=== PATIENT | female | born 1955 | race Hispanic/Latino ===

== ENCOUNTER 2017-07-21 11:44 | Day surgery (SDC) | payer OTHER ==
[2017-07-17 11:36] VITALS: BMI 39.3
[2017-07-21 12:35] LABS: BASO # 0.05 K/mm3 (0.0-2.0); BASO % 0.4 % (0.0-3.0); EOS # 0.3 (0.0-0.7); EOS % 2.4 % (1.5-5.0); GRAN # 8.59 (1.4-6.5); GRAN % 64.1 % (50.0-68.0); LYMPH # 3.7 (1.2-3.4); LYMPH % 27.3 % (22.0-35.0); MEAN CELL VOLUME 84.1 fl (80.0-105.0); MEAN CORPUSCULAR HEMOGLOBIN 27.4 pg (25.0-35.0); MEAN CORPUSCULAR HGB CONC 32.6 g/dl (31.0-37.0); MEAN PLATELET VOLUME 9.1 fl (7.0-11.0); MONO # 0.8 (0.1-0.6); MONO % 5.8 % (1.0-6.0); RED CELL DISTRIBUTION WIDTH 15.6 % (11.5-14.5); WHITE BLOOD COUNT 13.4 10^3/ul (4.5-11.0)
[2017-07-21 12:41] LABS: INR 1.02 (0.93-1.08); PARTIAL THROMBOPLASTIN TIME 30.1 Seconds (23.7-30.8)
[2017-07-21 12:42] LABS: BLOOD UREA NITROGEN 13 mg/dL (7-21); CARBON DIOXIDE 25 mmol/L (21-33); CHLORIDE 105 mmol/L (98-107); GFR AFRICAN-AMERICAN > 60; GLUCOSE,RANDOM 96 mg/dL (70-110); POTASSIUM 4.2 mmol/L (3.6-5.0); SODIUM 141 mmol/L (132-148)
[2017-07-21] MEDS ORDERED: Midazolam 2 MG/2 ML VIAL ONE ×2 (14:36→15:19)
[2017-07-21] MEDS ORDERED: Oxycodone/Acetaminophen 5/325 mg Tab PO PRN (15:38)
[2017-07-21] MEDS ORDERED: Sodium Chloride 0.45% 1,000 ML IV SCH (15:45)
[2017-07-21 17:07] VITALS: BP 156/75; PULSE 82; RESP 22; TEMP 98; O2SAT 96
--- NOTE | 2017-07-21 17:11 | CT ---
PROCEDURE: CT guided left chest biopsy biopsy. HISTORY: Enlarged left AP window lymph nodes. Positive PET. Smoker. Evaluate for malignancy PHYSICIAN(S): Uriel Hamlin MD. TECHNIQUE: The relative risks and indications of the procedure were explained to the patient and consent obtained. The patient was placed supine on the CT scanner and preliminary images through the upper mediastinum obtained. Conscious sedation and monitoring were provided throughout the procedure by a nurse. There is a 1.5 x 3.5 cm lymph node in the AP window. This corresponds to the activity on the PET scan.. A left parasternal approach was selected and the area prepped and draped in the usual sterile fashion. 1% Xylocaine was used to anesthetize the skin and soft tissues. A 17-gauge guiding needle was advanced into the re- 0.5 cm AP window lymph node. Its position was confirmed with CT. Using coaxial technique, multiple core biopsies were obtained. The postprocedure images show no evidence of significant hemorrhage and there is a tiny asymptomatic pneumothorax. Follow-up chest x-ray has been ordered.. IMPRESSION: 1. CT-guided left chest biopsy as described above
--- NOTE | 2017-07-22 13:41 | RAD ---
HISTORY: lt chest bx COMPARISON: No prior. FINDINGS: LUNGS: No active pulmonary disease. PLEURA: No significant pleural effusion identified, no pneumothorax apparent. CARDIOVASCULAR: Normal. OSSEOUS STRUCTURES: No significant abnormalities. VISUALIZED UPPER ABDOMEN: Normal. OTHER FINDINGS: None. IMPRESSION: No evidence of post biopsy pneumothorax
== END 2017-07-21 18:10 | disposition home or self-care (01) ==
LOC: SDS 11:44
PROVIDERS: ATTEND Radiology Vascular & Interventional Radiology
DX: R59.0 Localized enlarged lymph nodes (principal); I73.9 Peripheral vascular disease, unspecified; F17.200 Nicotine dependence, unspecified, uncomplicated; E66.9 Obesity, unspecified; G35 Multiple sclerosis; Z99.3 Dependence on wheelchair; Z88.5 Allergy status to narcotic agent; G82.20 Paraplegia, unspecified; Z68.39 Body mass index [BMI] 39.0-39.9, adult
CPT/HCPCS: 32405; 36415; 71010; 77012; 80048; 85025; 85610; 85730; 88305; 99152; J2250; J2405; J3010; J7030

== ENCOUNTER 2019-02-02 13:09 | Day surgery (SDC) | payer MEDICARE, OTHER ==
[2019-01-31 16:30] VITALS: BMI 30.1
[2019-02-02 14:21] LABS: BASO # 0.03 K/mm3 (0.0-2.0); BASO % 0.2 % (0.0-3.0); EOS # 0.5 (0.0-0.7); EOS % 3.1 % (1.5-5.0); HEMOGLOBIN 12.6 g/dL (12.0-16.0); LYMPH # 4.3 (1.2-3.4); LYMPH % 27.8 % (22.0-35.0); MEAN CELL VOLUME 82.3 fl (80.0-105.0); MEAN CORPUSCULAR HEMOGLOBIN 26.3 pg (25.0-35.0); MEAN CORPUSCULAR HGB CONC 31.9 g/dl (31.0-37.0); MEAN PLATELET VOLUME 8.7 fl (7.0-11.0); MONO # 0.8 (0.1-0.6); MONO % 5.2 % (1.0-6.0); RBC 4.8 10^6/uL (3.5-6.1); RED CELL DISTRIBUTION WIDTH 14.3 % (11.5-14.5); WHITE BLOOD COUNT 15.6 10^3/uL (4.5-11.0)
[2019-02-02 14:27] LABS: BLOOD UREA NITROGEN 11 mg/dL (7-21); CALCIUM 8.6 mg/dL (8.4-10.5); GFR NON-AFRICAN AMERICAN > 60
[2019-02-02 14:30] LABS: INR 1.14; PARTIAL THROMBOPLASTIN TIME 42.5 Seconds (26.9-38.3); PROTHROMBIN TIME 12.6 SECONDS (9.4-12.5)
[2019-02-02] MEDS ORDERED: Midazolam 2 MG/2 ML VIAL ONE (16:16)
[2019-02-02] MEDS ORDERED: Midazolam 2 MG/2 ML VIAL IVP ONE (16:35)
--- NOTE | 2019-02-02 16:52 | US ---
Date of service: 02/02/2019 PROCEDURE: Ultrasound of the Kidneys HISTORY: RENAL US COMPARISON: None available. TECHNIQUE: Sonogram of the kidneys. FINDINGS: RIGHT KIDNEY: Measures: 4.8 x 5.9 x 11.1 cm. Normal in size, contour and echogenicity. No stone, solid mass lesion or hydronephrosis visualized. LEFT KIDNEY: Measures: 6.1 x 5.4 x 11.0 cm. Normal in size, contour and echogenicity. No stone, solid mass lesion or hydronephrosis visualized. OTHER FINDINGS: None. IMPRESSION: Unremarkable renal sonogram.
[2019-02-02] MEDS ORDERED: Sodium Chloride 0.45% 1,000 ML IV SCH (17:00)
--- NOTE | 2019-02-02 17:33 | CT ---
PROCEDURE: CT guided cortex biopsy. HISTORY: Proteinuria. Evaluate for glomerular for opt a 3 PHYSICIAN(S): Uriel Hamlin MD. TECHNIQUE: The relative risks and indications of the procedure were explained to the patient and consent obtained. The patient was placed prone on the CT scanner and preliminary images through the lower kidneys obtained. Conscious sedation and monitoring were provided throughout the procedure by a nurse. The limited images of the left kidney without contrast are unremarkable.. A left posterior approach was selected and the area prepped and draped in the usual sterile fashion. 1% Xylocaine was used to anesthetize the skin and soft tissues. A 17-gauge guiding needle was advanced into the left renal cortex laterally and inferiorly. Its position was confirmed with CT. Using coaxial technique, multiple core biopsies were obtained. The postprocedure images show no evidence of significant hemorrhage. IMPRESSION: 1. CT-guided left renal cortex biopsy as described above.
[2019-02-02 17:49] VITALS: RESP 18; TEMP 97.8; O2SAT 99
[2019-02-02 19:31] VITALS: BP 140/70; PULSE 64
== END 2019-02-02 20:00 | disposition home or self-care (01) ==
LOC: SDS 13:09
PROVIDERS: ATTEND Radiology Vascular & Interventional Radiology
DX: R80.9 Proteinuria, unspecified (principal); J43.9 Emphysema, unspecified
CPT/HCPCS: 36415; 50200; 76770; 77012; 80048; 85025; 85610; 85730; 99152; J2250; J2405; J3010; J7030

== ENCOUNTER 2019-02-22 14:34 | Inpatient (IN) | payer OTHER ==
[2019-02-22 16:33] LABS: BASO # 0.06 K/mm3 (0.0-2.0); BASO % 0.4 % (0.0-3.0); EOS # 0.5 (0.0-0.7); HEMOGLOBIN 13.2 g/dL (12.0-16.0); LYMPH % 26.9 % (22.0-35.0); MEAN CELL VOLUME 81.3 fl (80.0-105.0); MEAN CORPUSCULAR HEMOGLOBIN 26.5 pg (25.0-35.0); MEAN CORPUSCULAR HGB CONC 32.6 g/dl (31.0-37.0); MEAN PLATELET VOLUME 8.8 fl (7.0-11.0); MONO # 0.8 (0.1-0.6); MONO % 5.5 % (1.0-6.0); RBC 4.98 10^6/uL (3.5-6.1); RED CELL DISTRIBUTION WIDTH 13.9 % (11.5-14.5); WHITE BLOOD COUNT 14.8 10^3/uL (4.5-11.0)
[2019-02-22 16:42] LABS: ALB/GLOB RATIO 0.8 (1.1-1.8); ALBUMIN 3.3 g/dL (3.0-4.8); AST/SGOT 16 U/L (14-36); BLOOD UREA NITROGEN 10 mg/dL (7-21); CALCIUM 8.9 mg/dL (8.4-10.5); GFR NON-AFRICAN AMERICAN > 60
[2019-02-22 16:45] LABS: ALT/SGPT < 6 U/L (7-56)
[2019-02-22] MEDS ORDERED: Piperacillin/Tazobact 3.375 gm 100 ML IVPB STA (17:03)
[2019-02-22] MEDS ORDERED: Vancomycin 1gm in NS 250ml 1 GM/250 ML BAG IVPB STA (17:03)
--- NOTE | 2019-02-22 17:05 | ED PDOC ---
Arrival/HPI - General Chief Complaint: Abnormal Skin Integrity Time Seen by Provider: 02/22/19 14:35 Historian: Patient - History of Present Illness Narrative History of Present Illness (Text): 02/22/19 18:51 63-year-old female with a history of MS presents today sent in by her primary care physician for admission for worsening sacral ulcer. Patient is complaining of pain to the sacrum states she has been dealing with a sacral ulcer for a while now. Patient states the wound was improving and now seems to have worsened. She is noticed some discharge coming from the wound. Patient denies fevers or chills. No chest pain or shortness of breath. No abdominal pain. No dizziness or weakness. Patient states she presents today because her primary care physician said that she may need debridement Past Medical History - Provider Review Nursing Documentation Reviewed: Yes - Travel History Have you recently traveled outside [place] w/in the past 3 mons?: No - Cardiac Hx Pacemaker: No - Neurological Hx Paralysis: No - Hematological/Oncological Hx Blood Transfusions: No Hx Blood Transfusion Reaction: No - Musculoskeletal/Rheumatological Hx Musculoskeletal Disorders: Yes (MS) - Psychiatric Hx Emotional Abuse: No Hx Physical Abuse: No Hx Substance Use: No - Anesthesia Hx Anesthesia: Yes Hx Anesthesia Reactions: Yes (VOMITING) Hx Malignant Hyperthermia: No - Suicidal Assessment Feels Threatened In Home Enviroment: No Family/Social History - Physician Review Nursing Documentation Reviewed: Yes Family/Social History: Unknown Family HX Smoking Status: Never Smoked Hx Alcohol Use: No Hx Substance Use: No Allergies/Home Meds Allergies/Adverse Reactions: Allergies codeine Allergy (Intermediate, Verified 07/17/17 11:37) HIVES Home Medications: Home Meds Medication Instructions Recorded Confirmed Baclofen [Lioresal] 10 mg PO BID 07/17/17 02/02/19 Cholecalciferol [Vitamin D 1000 IU] 1 tab PO DAILY 01/31/19 02/02/19 Docusate [Colace] 100 mg PO DAILY 01/31/19 02/02/19 Gabapentin [Neurontin] 100 mg PO TID 01/31/19 02/02/19 Review of Systems - Review of Systems Constitutional: absent: Fatigue, Fevers Respiratory: absent: SOB, Cough Cardiovascular: absent: Chest Pain, Palpitations Gastrointestinal: absent: Abdominal Pain, Nausea, Vomiting Genitourinary Female: Other (+ sanchez catheter). absent: Dysuria, Frequency, Hematuria Musculoskeletal: absent: Back Pain Skin: Skin Lesions (decub ulcer) Neurological: absent: Headache Psychiatric: absent: Anxiety, Depression Physical Exam Vital Signs Reviewed: Yes Vital Signs Temp Pulse Resp BP Pulse Ox 02/22/19 14:35 98.8 F 72 18 131/73 99 Temperature: Afebrile Blood Pressure: Normal Pulse: Regular Respiratory Rate: Normal Appearance: Positive for: Well-Appearing, Non-Toxic, Comfortable Pain Distress: None Mental Status: Positive for: Alert and Oriented X 3 - Systems Exam Head: Present: Atraumatic Respiratory/Chest: Present: Clear to Auscultation Cardiovascular: Present: Regular Rate and Rhythm Abdomen: No: Tenderness Neurological: Present: GCS=15, Speech Normal Skin: Present: Warm, Dry, Other (there is a golf ball sized sacral ulcer with purulent discharge. + surrounding erythema; multiple superficial skin abrasions /skin breakdown; entire sacral area with erythema/irritation. ) Psychiatric: Present: Alert, Oriented x 3 Medical Decision Making ED Course and Treatment: 02/22/19 18:54 63yr old female with decub ulcer/sacral ulcer. cbc; wbcl 14.8 cmp; wnl blood cultures pending. case discussed with dr. webb; accepts admission; consult ID and surgery. pt started on vanco and zosyn IV. pt had refused to have sanchez catheter changed in er. impression; sacral ulcer, leukocytosis admit med/surg - Lab Interpretations Lab Results: Total Bilirubin 0.3 mg/dL (0.2-1.3) 02/22/19 16:26 AST 16 U/L (14-36) 02/22/19 16:26 ALT < 6 U/L (7-56) L 02/22/19 16:26 Alkaline Phosphatase 86 U/L (38-126) 02/22/19 16:26 Total Protein 7.6 g/dL (5.8-8.3) 02/22/19 16:26 Albumin 3.3 g/dL (3.0-4.8) 02/22/19 16:26 Globulin 4.3 gm/dL 02/22/19 16:26 Albumin/Globulin Ratio 0.8 (1.1-1.8) L 02/22/19 16:26 - Medication Orders Current Medication Orders: Vancomycin HCl (Vancomycin 1gm) 1 gm in 250 mls @ 167 mls/hr IVPB STAT STA; Protocol Stop: 02/22/19 18:32 Piperacillin Sod/Tazobactam Sod (Zosyn 3.375 In Ns 100ml) 100 mls @ 200 mls/hr IVPB STAT STA; Protocol Stop: 02/22/19 17:32 Discontinued Medications Baclofen (Lioresal) 10 mg PO STAT STA Stop: 02/22/19 15:51 Last Admin: 02/22/19 16:11 Dose: 10 mg Gabapentin (Neurontin) 100 mg PO STAT STA; Protocol Stop: 02/22/19 15:51 Last Admin: 02/22/19 16:11 Dose: 100 mg Disposition/Present on Arrival - Present on Arrival Any Indicators Present on Arrival: No History of DVT/PE: No History of Uncontrolled Diabetes: No Urinary Catheter: No History of Decub. Ulcer: No History Surgical Site Infection Following: None - Disposition Have Diagnosis and Disposition been Completed?: Yes Diagnosis: Decubitus skin ulcer Disposition: HOSPITALIZED Disposition Time: 17:05 Patient Plan: Admission Patient Problems: Current Active Problems Problem Status Onset Decubitus skin ulcer Acute Condition: FAIR Referrals: Yosef Marte MD [Primary Care Provider] - Follow up with primary Forms: [employer] (Macedonian)
[2019-02-22 19:02] LABS: INR 1.06; PROTHROMBIN TIME 11.8 SECONDS (9.4-12.5)
[2019-02-22] MEDS ORDERED: Vancomycin 1gm in NS 250ml 1 GM/250 ML BAG IVPB SCH (19:45)
--- NOTE | 2019-02-22 21:54 | CP.PCM.CON ---
History of Present Illness - History of Present Illness History of Present Illness: General Surgery Dr. Lynch 63 y/o F w/ PMHx MS, PVD, asthma presents to the ED at the direction of her PMD for sacral wound evaluation. Pt has had sacral wound for ~1yr. Pt had debridement done @[facility] last year which mostly healed, though pt reports chronic small stage 2 ulcer remained. Pt has home health aid that manages wound and A DLs. Per pt, aid noted enlargement of wound w/ worsening drainage. Pt admits to slight worsening of pain at the site. Pt's PMD made home visit yesterday and instructed pt come to the ED for possible debridement. Pt admits to chronic N/V associated w/ physical therapy 2/2 MS. Pt denies F/C, CP, SOB, abd pain, D/C, dysuria. Pt has indwelling sanchez catheter 2/2 urinary incontinence and permanent end colostomy 2/2 fecal incontinence. PMHx: see above, obesity, sacral decubitus ulcer, lung nodule Meds: reviewed in chart ALL: codeine --> rash PSHx: permanent end-colostomy ([facility] 2018), sacral wound debridemenr ([facility] 2018), cervical discectomy SHx: former tobacco use; denies EtOH, drug use FHx: noncontributory Review of Systems - Review of Systems All systems: reviewed and no additional remarkable complaints except (see HPI) Past Patient History - Past Social History Smoking Status: Never Smoked - CARDIAC Hx Pacemaker: No - NEUROLOGICAL Hx Paralysis: No - HEMATOLOGICAL/ONCOLOGICAL Hx Blood Transfusions: No Hx Blood Transfusion Reaction: No - MUSCULOSKELETAL/RHEUMATOLOGICAL Hx Musculoskeletal Disorders: Yes (MS) - PSYCHIATRIC Hx Emotional Abuse: No Hx Physical Abuse: No Hx Substance Use: No - SURGICAL HISTORY Hx Surgeries: Yes - ANESTHESIA Hx Anesthesia: Yes Hx Anesthesia Reactions: Yes (VOMITING) Hx Malignant Hyperthermia: No Meds Allergies/Adverse Reactions: Allergies Allergy/AdvReac Type Severity Reaction Status Date / Time codeine Allergy Intermediate HIVES Verified 07/17/17 11:37 - Medications Medications: Current Medications Baclofen (Lioresal) 10 mg PO BID [facility] Docusate Sodium (Colace) 100 mg PO DAILY [facility] Gabapentin (Neurontin) 100 mg PO TID [facility]; Protocol Meropenem (Merrem Iv 1 Gm Premix) 1 gm in 50 mls @ 100 mls/hr IVPB Q8 [facility]; Protocol Stop: 03/02/19 22:01 Vancomycin HCl (Vancomycin 1gm) 1 gm in 250 mls @ 167 mls/hr IVPB Q12H [facility]; Protocol Stop: 03/03/19 19:46 Physical Exam - Constitutional Appears: Non-toxic, No Acute Distress - Head Exam Head Exam: NORMAL INSPECTION - Eye Exam Eye Exam: Normal appearance - ENT Exam ENT Exam: Mucous Membranes Moist - Respiratory Exam Respiratory Exam: NORMAL BREATHING PATTERN. absent: Accessory Muscle Use, Respiratory Distress - Cardiovascular Exam Cardiovascular Exam: absent: Bradycardia, Tachycardia - GI/Abdominal Exam GI & Abdominal Exam: Soft. absent: Distended, Tenderness Additional comments: ostomy in place - Exam Additional comments: sanchez in place - Back Exam Additional comments: [id number] sacral decubitus ulcer stage 2 w/ surrounding stage1 vs DTI - Neurological Exam Neurological exam: Alert, Oriented x3 - Psychiatric Exam Psychiatric exam: Normal Affect, Normal Mood - Skin Skin Exam: Dry, Warm Results - Vital Signs Recent Vital Signs: Last Vital Signs Temp 97.4 F L 02/22/19 19:30 Pulse 76 02/22/19 19:30 Resp 18 02/22/19 19:30 BP 135/74 02/22/19 19:30 Pulse Ox 98 02/22/19 19:30 - Labs Result Diagrams: 02/22/19 16:26 02/22/19 16:26 Labs: Laboratory Results - last 24 hr 02/22/19 02/22/19 02/22/19 16:26 16:26 18:38 WBC 14.8 H RBC 4.98 Hgb 13.2 Hct 40.5 MCV 81.3 MCH 26.5 MCHC 32.6 RDW 13.9 Plt Count 418 MPV 8.8 Neut % (Auto) 64.2 Lymph % (Auto) 26.9 Coles % (Auto) 5.5 Eos % (Auto) 3.0 Baso % (Auto) 0.4 Lymph # (Auto) 4.0 H Coles # (Auto) 0.8 H Eos # (Auto) 0.5 Baso # (Auto) 0.06 Absolute Neuts (auto) 9.48 H PT 11.8 INR 1.06 APTT 44.0 H Sodium 141 Potassium 4.3 Chloride 107 Carbon Dioxide 29 Anion Gap 10 BUN 10 Creatinine 0.6 L Est GFR ( Amer) > 60 Est GFR (Non-Af Amer) > 60 Random Glucose 87 Calcium 8.9 Total Bilirubin 0.3 AST 16 ALT < 6 L Alkaline Phosphatase 86 Total Protein 7.6 Albumin 3.3 Globulin 4.3 Albumin/Globulin Ratio 0.8 L Assessment & Plan - Assessment and Plan (Free Text) Assessment: 63 y/o F w/ sacral decubitus ulcer 2/2 MS Plan: - turn Q2 - air mattress - off loading - keep area dry and clean - optifoam - will need to further assess wound in AM when more assistance available for evaluation of wound bed Will discuss w/ Dr. Syed Liz PGY3
[2019-02-22] MEDS ORDERED: DiphenhydrAMINE 50 mg/ml Inj IVP STA (22:35)
[2019-02-22] MEDS: Meropenem IV 1 gm in NS 1 GM/50 ML BAG IVPB SCH (22:57)
[2019-02-22 23:12] VITALS: BMI 27.4
[2019-02-23] MEDS: Meropenem IV 1 gm in NS 1 GM/50 ML BAG IVPB SCH ×3 (05:20→22:06)
--- NOTE | 2019-02-23 11:17 | CP.PCM.PN ---
Subjective - Date & Time of Evaluation Date of Evaluation: 02/23/19 Time of Evaluation: 11:08 - Subjective Subjective: SURGERY NOTE FOR DR. MARIE 63F seen and examined at bedside. Patient has back pain where the ulcers are, denies fevers. Patient is bedbound and does not walk due to MS. Objective - Vital Signs/Intake and Output Vital Signs (last 24 hours): Temp Pulse Resp BP Pulse Ox 98.7 F 66 18 155/67 H 95 02/23/19 06:00 02/23/19 06:00 02/23/19 06:00 02/23/19 06:00 02/23/19 06:00 Intake and Output: 02/23/19 02/23/19 06:59 18:59 Output Total 350 Balance -350 - Medications Medications: Current Medications Baclofen (Lioresal) 10 mg PO BID [facility]ION[facility] Docusate Sodium (Colace) 100 mg PO DAILY DIONE Gabapentin (Neurontin) 100 mg PO TID [facility]; Protocol Meropenem (Merrem Iv 1 Gm Premix) 1 gm in 50 mls @ 100 mls/hr IVPB Q8 [facility]; Protocol Stop: 03/02/19 22:01 Last Admin: 02/23/19 05:20 Dose: 100 mls/hr Linezolid (Zyvox) 600 mg PO BID [facility]; Protocol Stop: 03/04/19 10:01 - Labs Labs: 02/22/19 16:26 02/22/19 16:26 PT 11.8 SECONDS (9.4-12.5) 02/22/19 18:38 INR 1.06 02/22/19 18:38 APTT 44.0 Seconds (26.9-38.3) H 02/22/19 18:38 - Constitutional Appears: Non-toxic, No Acute Distress - Respiratory Exam Respiratory Exam: Clear to Ausculation Bilateral, NORMAL BREATHING PATTERN - Cardiovascular Exam Cardiovascular Exam: REGULAR RHYTHM, +S1, +S2 - GI/Abdominal Exam GI & Abdominal Exam: Soft. absent: Distended, Firm, Guarding, Rigid, Tenderness, Rebound - Back Exam Additional comments: stage 2 3*3cm ulcer with multiple skin tears, no necrotic region, no drainage - Neurological Exam Neurological Exam: Alert, Awake - Skin Skin Exam: Dry, Intact, Normal Color, Warm Assessment and Plan - Assessment and Plan (Free Text) Assessment: 63 y/o F w/ sacral decubitus ulcer 2/2 MS Plan: - Turn Q2 - Air mattress - Keep area dry and clean - Optifoam Dressing Further recs discuss with Dr. Syed Kirk, PGY3
--- NOTE | 2019-02-23 15:30 | CON ---
DATE: 02/23/2019 LOCATION: The patient seen in room 574, bed 1. CHIEF COMPLAINT: Breakdown of the skin in the back times several days. HISTORY OF PRESENT ILLNESS: This is a 63-year-old female who carries a diagnosis of multiple sclerosis for many years who has had the sacral ulcer that is being treated, and however last 3 days, it got progressively worse and started having discharge. She denies any fevers, any chills. No nausea, no vomiting or chest pain. She has significant pain in her back. REVIEW OF SYSTEMS: Reveals a 12-point review of systems is performed. PAST MEDICAL HISTORY: Significant for multiple sclerosis and a decubitus ulcer. PAST SURGICAL HISTORY: Significant for decubitus ulcer, sacral ulcer debridement and cervical disk disease x2 after a fall. The patient also has history of asthma and peripheral vascular disease. ALLERGIES: THE PATIENT IS ALLERGIC TO CODEINE. SOCIAL HISTORY: No alcohol use. No drug use. PHYSICAL EXAMINATION: GENERAL: The patient is in bed, answering questions appropriately. VITAL SIGNS: Temperature of 98, blood pressure is 130/70, respiratory rate of 18. HEENT: Unremarkable. NECK: Supple. LUNGS: Decreased breath sounds. HEART: Normal S1 and S2. ABDOMEN: Soft, nontender. EXTREMITIES: Examination of decubitus ulcer reveals a significant decubitus ulcer is present. There is no erythema and there is discharge. LABORATORY DATA: Reveals a white count of 14,800 and sed rate is 118. BUN of 10, creatinine of 0.6. Microbiology is pending. Emergency room chart is reviewed and Dr. Lynch's consultation is reviewed. ASSESSMENT AND PLAN: This is a 63-year-old female with multiple sclerosis, asthma, peripheral vascular disease, sacral ulcer, presenting with infected sacral ulcer with leukocytosis. We will treat the patient with meropenem. We will add Zyvox with questionable the IV site. Vancomycin was given last night and too fast and the IV site was infiltrated, not a true pathogen. We will treat with Zyvox and meropenem for now pending culture results. Donis Ramirez MD
--- NOTE | 2019-02-23 16:09 | US ---
Date of service: 02/23/2019 HISTORY: transaminitis COMPARISON: None. TECHNIQUE: Sonographic evaluation of the right upper quadrant of the abdomen. FINDINGS: LIVER: Measures 13.5 cm in length. Diffusely increased echogenicity of the liver parenchyma. No mass. No intrahepatic bile duct dilatation. GALLBLADDER: Distended but otherwise unremarkable gallbladder. No sonographic Garcia sign recall phthisis. COMMON BILE DUCT: Measures 5.7 mm. No stones. No dilatation. PANCREAS: Unremarkable as visualized. No mass. No ductal dilatation. RIGHT KIDNEY: Measures 10.7 cm in length. Normal echogenicity. No calculus, mass, or hydronephrosis. AORTA: Obscured by overlying bowel gas. IVC: Obscured by overlying bowel gas. OTHER FINDINGS: None . IMPRESSION: Diffuse hepatic steatosis or other hepatic infiltrative process present. Obscuring of the aorta and vena cava by overlying gastrointestinal gas with remainder unremarkable.
--- NOTE | 2019-02-23 20:59 | HP ---
DATE OF EXAM: 02/23/2019 CHIEF COMPLAINT AND HISTORY OF PRESENT ILLNESS: This is a 63-year-old female, who is coming into the hospital because of a sacral pressure ulcer that is nonhealing. She failed outpatient treatment. 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 She is homebound. She is having no complaints of any chest pain. No shortness of breath. The patient does have difficulty in walking, but has not changed over the past few months. She was admitted for evaluation of her wound. The patient had been in [facility] and had a large wound that has been present about a year ago. She had local wound care and debridement and that wound has improved, but not completely healed. She has a homemaker and also physical therapy that comes to the house. She has a chronic Velez catheter because of a urinary incontinence. She otherwise has no other complaints. She has no fevers or chills. No headaches or dizziness. No nausea. No vomiting. All other review of symptoms are within normal limits except what is mentioned. ALLERGIES: TO CODEINE. MEDICATIONS: Have been reviewed in the chart. PAST MEDICAL HISTORY: Lung nodule, sacral pressure ulcer, and multiple sclerosis. PAST SURGICAL HISTORY: End colostomy in 2019, sacral pressure ulcer, and cervical discectomy. SOCIAL HISTORY: The patient does not smoke or use drugs; denies alcohol. She smoked for 35 years, one pack per day, but is not currently smoking. PHYSICAL EXAMINATION: VITAL SIGNS: Temperature is 98.7, pulse of 66, blood pressure 155/67, respirations 18, and O2 saturation 95%. Height is 5 feet 6 inches, weight is 170 pounds, and BMI is 27. GENERAL: The patient is lying in bed, comfortable, and in no acute distress. HEENT: Atraumatic and normocephalic. Anicteric sclerae. Moist mucosa. Avilla conjunctivae. No oral lesions. NECK: No JVD, anterior and posterior adenopathy, thyromegaly, or bruits. CARDIOVASCULAR: S1 and S2 regular. No murmurs, rubs or gallops. LUNGS: Clear to auscultation bilaterally. No wheezes, rales, or rhonchi. ABDOMEN: Bowel sounds are positive. Soft, nontender and nondistended. No hepatosplenomegaly. No rebound and no guarding. EXTREMITIES: No cyanosis, clubbing, or edema. NEUROLOGIC: No facial asymmetry. Tongue is midline. No uvula deviation. Power is 5/5 in upper extremities and lower extremities. Sensation intact in upper extremities and lower extremities. PSYCHIATRIC: She is awake, alert and oriented x3. No anxiety or depression. She has normal affect. GENITOURINARY: No CVA tenderness. VASCULAR: 2+ pulses in the carotid pulses and pedal pulses. SKIN: No erythema or nodules SPINE: Shows normal curvature. BACK: Pressure ulcer is 2 x 2 cm, stage II. LABORATORY DATA: White count of 14.8, hemoglobin 13.2, and creatinine is 0.6. She had a renal ultrasound done on 02/02/2019 that showed that it was an unremarkable renal ultrasound. She had the right kidney that is 4.8 x 5.9 x 11.1 cm and left kidney that is 6.1 x 5.4 x 11 cm. ASSESSMENT: 1. Pressure ulcer, stage II, sacral area. 2. Membranous glomerulonephritis. 3. Multiple sclerosis. 4. Constipation. PLAN: The patient is admitted to the hospital. She had abnormal LFTs as an outpatient by Dr. Marte. I did speak to him. He requested a liver ultrasound to be done that has been ordered. The patient is on IV antibiotics with meropenem. She is on baclofen for spasticity. She is also receiving linezolid. The patient is going to be seen by Dr. Ramirez from Infectious Disease and Dr. Lynch. I did review the note of the Surgery team. We will continue to follow closely. Cleveland Christopher MD
[2019-02-24] MEDS: Meropenem IV 1 gm in NS 1 GM/50 ML BAG IVPB SCH ×3 (05:51→21:16)
--- NOTE | 2019-02-24 17:13 | PQF ---
PROVIDER RESPONSE TEXT: Stage II sacral pressure ulcer REVIEWER QUERY TEXT: Pressure Ulcer Type Pressure ulcer is documented in the Medical Record. Please specify the location, present on admission status and/or stage: Location and laterality of pressure ulcer(s): POA status of each pressure ulcer: -- Not present on admission -- Present on admission -- Other -- Clinically unable to determine -- Unknown Stage of each pressure ulcer (National Pressure Ulcer Advisory Panel definitions): -- Stage I: Intact skin with non-blanchable redness of a localized area -- Stage II: Partial thickness skin loss involving dermis with a shallow open ulcer or an open serum -filled blister -- Stage III: Full thickness skin loss involving damage or necrosis of subcutaneous tissue -- Stage IV: Full thickness skin loss with exposed bone, tendon or muscle -- Unstageable: Full thickness tissue loss in which the base of the ulcer is covered by slough and/o r eschar in the wound bed The patient's Clinical Indicators include: Query created by: Namita Kim on 02/24/2019 2:59 PM Electronically signed by: Cleveland Christopher MD 02/24/2019 5:10 PM
--- NOTE | 2019-02-24 22:31 | PN ---
DATE: 02/24/2019 SUBJECTIVE: The patient is in bed in no acute distress. PHYSICAL EXAMINATION: VITAL SIGNS: Temperature 98, blood pressure is 118/70, respiratory rate of 20. HEENT: Unremarkable. NECK: Supple. LUNGS: Have decreased breath sounds. HEART: Normal S1, S2. ABDOMEN: Soft. LABORATORY EXAMINATION: Reveals a white count of 14,800, hemoglobin of 13. Chemistries reveals a BUN of 10, creatinine 0.6. The patient's sed rate is 118. C-reactive protein is 32. Urinalysis is noted. Microbiology reveals the blood cultures are negative. The patient had an ultrasound of the abdomen, which shows diffuse hepatic steatosis. ASSESSMENT AND PLAN: This is a 63-year-old female who was admitted with a history of multiple sclerosis, asthma, peripheral vascular disease, sacral ulcers, presented with leukocytosis and infected sacral ulcer, must rule out underlying osteomyelitis. Currently on Zyvox and meropenem. We will check on the panculture results, values of sed rate and elevated C-reactive protein in the patient with multiple sclerosis of values since inflammatory markers not specific enough. Donis Ramirez MD
--- NOTE | 2019-02-25 03:40 | PN ---
DATE: 02/24/2019 SUBJECTIVE: The patient has no complaints of any chest pain. No shortness of breath. No headaches. PHYSICAL EXAMINATION: VITAL SIGNS: Temperature is 98, pulse is 68, blood pressure is 118/74, respirations 20. GENERAL: The patient is lying in bed, flat, comfortable. HEENT: No oral lesion. Anicteric sclerae. Moist mucosa. NECK: No JVD, adenopathy, or thyromegaly. CARDIOVASCULAR: S1 and S2, regular. No murmurs, rubs, or gallops. LUNGS: Clear to auscultation bilaterally. No wheeze, rales, or rhonchi. ABDOMEN: Bowel sounds are positive. Soft, nontender, nondistended. EXTREMITIES: No cyanosis, clubbing, or edema. LABORATORY DATA: White count of 14.8, hemoglobin is 13.2, creatinine is 0.6. ASSESSMENT: 1. Pressure ulcer, stage II, sacral area. 2. Membranous glomerulonephritis. 3. Multiple sclerosis. 4. Constipation. PLAN: The patient has an . She is getting 2 hours. She is getting local wound care. She has a 2 x 3 cm ulcer. The patient had an ultrasound done that showed increased echogenicity of the liver parenchyma, there is no mass, measures 13.5 cm. She is on baclofen. She is going to continue with lisinopril for her hypertension. She is on a regular diet. Cleveland Christopher MD
[2019-02-25] MEDS: Meropenem IV 1 gm in NS 1 GM/50 ML BAG IVPB SCH ×3 (05:14→21:06)
--- NOTE | 2019-02-25 10:42 | PN ---
DATE: 02/25/2019 SUBJECTIVE: The patient has no complaints of any chest pain. No shortness of breath. No headaches. PHYSICAL EXAMINATION: VITAL SIGNS: Temperature 98.1, pulse 66, blood pressure 146/73, respirations 20. GENERAL: The patient is lying in bed, flat, comfortable. HEENT: No oral lesion. Anicteric sclerae. Moist mucosa. NECK: No JVD, adenopathy, or thyromegaly. CARDIOVASCULAR: S1 and S2, regular. No murmurs, rubs, or gallops. LUNGS: Clear to auscultation bilaterally. No wheeze, rales, or rhonchi. ABDOMEN: Bowel sounds are positive, soft, nontender and nondistended. EXTREMITIES: No cyanosis, clubbing or edema. LABORATORY DATA: White count of 14.8, hemoglobin is 13.2, creatinine is 0.6. ASSESSMENT: 1. Pressure ulcer, stage II, sacral area. 2. Membranous glomerulonephritis. 3. Multiple sclerosis. 4. Constipation. PLAN: The patient is getting local wound care. She is on meropenem for antibiotics. She is on Neurontin for neuropathy. The patient is on Zyvox for antibiotics. I did speak to Dr. Lynch and Dr. Ramirez from Surgery and Infectious Disease respectively. The patient is on a regular diet. Cleveland Christopher MD
[2019-02-25] MEDS ORDERED: Collagenase 250 Units/gm Ointment(30 gm) TOP SCH ×2 (10:45→11:31)
[2019-02-25] MEDS: Nystatin 100,000 Units/gm Topical Pow(15 gm) TOP SCH (17:13)
--- NOTE | 2019-02-25 20:52 | PN ---
DATE: 02/25/2019 SUBJECTIVE: The patient is in bed in no acute distress, nontoxic, was seen early this morning. PHYSICAL EXAMINATION VITAL SIGNS: On exam temperature is 98, blood pressure is 140/60 and respiratory rate of 20. HEENT: Unremarkable. NECK: Supple. LUNGS: Have decreased breath sounds. HEART: Normal S1 and S2. ABDOMEN: Soft. LABORATORY EXAMINATION: Reveals the blood cultures are negative. Urine cultures are negative. Review of orders reveals the patient to be on meropenem and Zyvox. Dr. Christopher's note is reviewed. ASSESSMENT AND PLAN: This is a 63-year-old female who was admitted with a history of multiple sclerosis, asthma, peripheral vascular disease, sacral ulcer, presented with leukocytosis, infected sacral ulcer and cultures are pending. Case discussed with Dr. Christopher. We will follow with you. Donis Ramirez MD
--- NOTE | 2019-02-25 22:40 | CON ---
DATE: 02/25/2019 HISTORY OF PRESENT ILLNESS: This is a 63-year-old female with a past medical history of sacral pressure ulcer, multiple sclerosis, and a lung nodule and came to hospital because of nonhealing sacral ulcer, failed outpatient treatment, has a history of membranous glomerulonephritis. She was seen in [place] for her MS, but has not seen anybody for the last two years and stopped ambulating a year ago. She has a full-time care who is on care with her. ALLERGIES: ALLERGIC TO CODEINE. SOCIAL HISTORY: Does not smoke, does not drink. She smoked for 35 years, one pack per day, currently not smoking. PHYSICAL EXAMINATION VITAL SIGNS: Blood pressure 155/67. HEENT: Normocephalic, atraumatic. NECK: Supple. NEUROLOGIC: Awake and orientated to self and place. Cranial nerves II through XII were tested. Pupils reactive. EOM intact. Visual henderson full. No facial asymmetry. Tongue midline. Motor examination; moves both upper extremities equally 5/5. Limited movement of the both lower extremities. Deep tendon reflex is 1+. Both plantars downgoing. Sensory appears intact. Cerebellar gait was deferred. IMPRESSION AND PLAN: This is a 63-year-old white female with past medical history of multiple sclerosis, came here with a pressure ulcer sacral area, nonhealing and membranous glomerulonephritis, multiple sclerosis, and constipation. We ordered the MRI of the head with and without contrast and MRI of the cervical spine and further management after results of above test. She has not been taking any modulating agents, so we will followup. Zack Cline MD
[2019-02-26] MEDS: Meropenem IV 1 gm in NS 1 GM/50 ML BAG IVPB SCH ×3 (05:19→21:44)
--- NOTE | 2019-02-26 09:51 | PN ---
DATE: 02/26/2019 SUBJECTIVE: The patient is in bed in no acute distress, nontoxic. PHYSICAL EXAMINATION: VITAL SIGNS: Temperature is 98, blood pressure is 150/60, respiratory rate 16. HEENT: Unremarkable. NECK: Supple. LUNGS: Have decreased breath sounds. HEART: Normal S1, S2. ABDOMEN: Soft, nontender. LABORATORY EXAMINATION: Review of white count of 14,000. Sed rate of 118 and C-reactive protein is 32. Chemistries are noted. Urinalysis is noted. Microbiology; the blood cultures and urine cultures are negative. Wound culture is pending. Review of orders reveals the patient to be on Zyvox and meropenem. ASSESSMENT AND PLAN: This is a 63-year-old female admitted with multiple sclerosis, asthma, peripheral vascular is with sacral ulcers and leukocytosis and infected sacral ulcers on vancomycin and meropenem, pending culture results and must rule out underlying osteomyelitis of the sacral bone, should have CAT scan or imaging or MRI. We will discuss with Dr. Christopher. Rose Marie Barajas MD Donis Ramirez MD
[2019-02-26] MEDS: Nystatin 100,000 Units/gm Topical Pow(15 gm) TOP SCH ×2 (09:55→17:42)
[2019-02-26] MEDS ORDERED: Gadodiamide 287 MG/ML VIAL (15ML) IV ONE (15:16)
--- NOTE | 2019-02-26 16:38 | MRI ---
Date of service: 02/26/2019 PROCEDURE: MRI BRAIN WITH AND WITHOUT CONTRAST HISTORY: MS COMPARISON: None. TECHNIQUE: Multiplanar, multisequence MR images of the brain were obtained with and without intravenous contrast enhancement. 15 mL Omniscan was injected intravenously. FINDINGS: HEMORRHAGE: None DWI: No evidence of an acute or early subacute infarction. BRAIN PARENCHYMA: There are multifocal T2/FLAIR hyperintense lesions in the subcortical deep and periventricular white matter and confluent T2/FLAIR hyperintensities in the periventricular white matter. There are chronic lacunar infarctions in the left basal ganglia. There is no mass, mass effect or abnormal extra-axial fluid collection. There is also T2/FLAIR hyperintensity at the callososeptal interface. ENHANCEMENT: No abnormal intracranial enhancement. VENTRICLES: There is mild age-related global parenchymal volume loss and proportionate enlargement of the ventricles and cortical sulci. CRANIUM: There is normal bone marrow signal pattern. ORBITS: Grossly unremarkable. PARANASAL SINUSES/MASTOIDS: Predominantly clear. VASCULAR SYSTEM: There are normal signal voids in the larger intracranial arteries. OTHER FINDINGS: None . IMPRESSION: 1. No acute intracranial abnormality. 2. Multifocal subcortical deep and periventricular white matter lesions are nonspecific but most compatible with demyelinating plaques of multiple sclerosis with the stated clinical history of multiple sclerosis. No evidence for active demyelination.
--- NOTE | 2019-02-26 17:08 | MRI ---
Date of service: 02/26/2019 PROCEDURE: MR CERVICAL SPINE WITH AND WITHOUT CONTRAST HISTORY: MS, S/P FALL AT HOME COMPARISON: There radiology MRI please yeah 1 [id number] to the MRI from the the the of the we 2 arm study dated TECHNIQUE: Multiecho multiplanar sequences were performed through the cervical spine with and without the use of intravenous contrast. 15 mL Omniscan was injected intravenously. Examination is of suboptimal diagnostic quality especially for evaluation of cervical cord due to motion degraded images FINDINGS: There is normal alignment of the cervical vertebral bodies. There straightening of the cervical spine with loss of normal cervical lordosis. Status post fusion of C3-4 and C5-6 vertebral bodies. There is heterogeneous predominantly fatty marrow signal on T1 and T2 weighted images. Evaluation of the cervical is limited due to motion degraded images allowing for this, the cord is atrophic without evidence for intrinsic signal abnormality. No evidence of abnormal intramedullary or leptomeningeal enhancement in the cervical and visualized upper thoracic cord. C2-3: No disc herniation, spinal canal stenosis or neural foraminal narrowing. C3-4: Status post fusion. C4-5: Broad-based disc osteophyte complex indents the ventral thecal sac with moderate spinal canal stenosis. Also noted is superimposed left posterolateral and foraminal disc protrusion which likely impinges on the exiting C5 nerve root. C5-C6: Status post fusion. C6-C7: No disc herniation, spinal canal stenosis or neuroforaminal narrowing. C7-T1: Broad-based disc osteophyte complex indents the ventral thecal sac with mild spinal canal stenosis. Moderate bilateral facet arthropathy contribute to moderate right and moderate to severe left neural foraminal narrowing. OTHER FINDINGS: There is an enlarged multinodular thyroid gland. IMPRESSION: 1. This examination is of suboptimal diagnostic quality due to motion degraded images. Allowing for this, the cervical cord is atrophic without evidence of abnormal intrinsic signal, intramedullary or leptomeningeal enhancement. No evidence for active demyelination. 2. Status post presumable degenerative fusion of the C3-4 and C5-6 vertebral bodies, mild multilevel degenerative disc disease, worse at C4-5 with a broad-based disc osteophyte complex with superimposed left posterolateral and foraminal disc protrusion which impinges the exiting left C5 nerve root, also noted is moderate spinal canal stenosis. 3. Enlarged multinodular thyroid gland. A dedicated thyroid ultrasound is recommended for complete evaluation of the thyroid gland.
--- NOTE | 2019-02-26 17:45 | PN ---
DATE: 02/26/2019 SUBJECTIVE: The patient is a 63-year-old female with past medical history of multiple sclerosis and came with sacral pressure ulcers and the patient and MRI of the head and the MRI of the cervical spine was ordered. Still pending and continue present workup in progress. We will follow up. ASSESSMENT AND PLAN: This is a 63-year-old with past medical history of multiple sclerosis, came with sacral nonhealing ulcers and workup in progress. We will follow up. Zack Cline MD
--- NOTE | 2019-02-27 01:52 | DS ---
HISTORY OF PRESENT ILLNESS: This is a 63-year-old female who had come into the hospital because of sacral pressure ulcer. The patient was started on local wound care and started on IV antibiotics. The patient states pressure ulcer has been treated locally. She is going to be discharged home today after she has an MRI to be done by Neurology. She has no complaints of any headaches or dizziness. No nausea, no vomiting. PHYSICAL EXAMINATION: VITAL SIGNS: Temperature is 98.1, pulse is 62, blood pressure is 150/72, respirations 18, O2 saturation is 96%. GENERAL: The patient is lying in bed, flat, comfortable. HEENT: No oral lesion. Anicteric sclerae. Moist mucosa. NECK: No JVD, adenopathy, or thyromegaly. CARDIOVASCULAR: S1 and S2, regular. No murmurs, rubs, or gallops. LUNGS: Clear to auscultation bilaterally. No wheeze, rales, or rhonchi. ABDOMEN: Bowel sounds are positive, soft, nontender and nondistended. BACK: In sacral area, there is a stage II pressure wound. EXTREMITIES: No cyanosis, clubbing or edema. Sacral area; there is a stage II pressure wound. LABORATORY DATA: White count of 14.8, hemoglobin 13.2. Chemistry shows sodium 141, potassium is 4.3, C-reactive protein is 32. ASSESSMENT: 1. Pressure ulcer, stage II, sacral area. 2. Membranous glomerulonephritis. 3. Multiple sclerosis. 4. Constipation. PLAN: The patient is on baclofen for her MS. She was seen by Dr. Cline, appreciated his input. The patient is on meropenem for IV antibiotics, I will change this over to Augmentin and doxycycline oral/p.o. to discharged home. [facility] I will written prescription for dressings 4 x 4's and saline. The patient has an MRI of the brain and spinal cord, that is pending. DIET: She is on regular diet. FOLLOWUP: Follow up with Dr. Marte in 1 to 2 weeks. CONDITION: Stable. ACTIVITIES: Increase as tolerated. Cleveland Christopher MD [facility] # [id number]
[2019-02-27] MEDS: Meropenem IV 1 gm in NS 1 GM/50 ML BAG IVPB SCH ×3 (05:03→22:44)
--- NOTE | 2019-02-27 13:43 | PN ---
DATE: 02/27/2019 SUBJECTIVE: The patient is in bed in no acute distress, nontoxic. PHYSICAL EXAMINATION: VITAL SIGNS: Temperature is 97, blood pressure is 111/70, respiratory rate of 18, heart rate of 64. HEENT: Unremarkable. NECK: Supple. LUNGS: Have decreased breath sounds. HEART: Normal S1, S2. ABDOMEN: Soft. LABORATORY EXAMINATION: Reveals a white count of 14,000, hemoglobin of 13. C-reactive protein is 32. Sed rate is 118. Chemistries are noted. Urinalysis is noted and microbiology reveals the sacral cultures pending. The blood cultures are no growth. Urine cultures negative and patient has had an MRI of the head. Which shows no acute abnormalities and the patient also had an MRI of the cervical spine which is noted and MRI of the pelvis is pending results. ASSESSMENT AND PLAN: This is a 63-year-old female with a history of multiple sclerosis, asthma, peripheral vascular disease, sacral ulcer and leukocytosis, infected sacral ulcers on vancomycin, meropenem. MRI pending to rule out osteomyelitis and culture of the sacrum also pending. We will see MRI and the cultures are available. We will decide on the antibiotics and duration. Currently on meropenem which requires renewal which she will do so and also linezolid which also requires renewal and we will do so. Continue linezolid and meropenem pending culture MRI results. Case discussed with Dr. Christopher. Donis Ramirez MD
--- NOTE | 2019-02-27 16:21 | PN ---
DATE: 02/27/2019 SUBJECTIVE: The patient has no complaints of any chest pain or shortness of breath. No headaches or dizziness. PHYSICAL EXAMINATION: VITAL SIGNS: Temperature is 97.9, pulse is 64, blood pressure is 111/70, and respirations are 18. GENERAL: The patient is lying in bed, flat, comfortable. HEENT: No oral lesion. Anicteric sclerae. Moist mucosa. NECK: No JVD, adenopathy, or thyromegaly. CARDIOVASCULAR: S1 and S2, regular. No murmurs, rubs, or gallops. LUNGS: Clear to auscultation bilaterally. No wheeze, rales, or rhonchi. ABDOMEN: Bowel sounds are positive, soft, nontender and nondistended. BACK: Stage II pressure ulcer. EXTREMITIES: No cyanosis, clubbing, or edema. LABORATORY DATA: White count of 14.8, hemoglobin 13.2, and creatinine is 0.6. MRI of the cervical spine shows suboptimal quality due to motion images. The patient has a degenerative fusion of C3-C4 and C5-C6. There is enlarged multinodular thyroid goiter. MRI of the head shows multifocal subcortical deep and periventricular white matter lesions. There is no evidence for active demyelination. ASSESSMENT: 1. Pressure ulcer, stage II, sacral area. 2. Membranous glomerulonephritis. 3. Multiple sclerosis. 4. Constipation. PLAN: The patient is currently comfortable. He is on baclofen for spasticity. He was seen by Dr. Cline for her MS. No active MS is seen. The patient is on gabapentin for neuropathy. There is local wound care with Santyl is being done. The patient is on Zyvox for her antibiotics. I did speak to Dr. Ramirez regarding the case. The patient is waiting for pelvic MRI to rule out osteomyelitis. The MRI has been done and the results are pending. Cleveland Christopher MD
[2019-02-27] MEDS: Nystatin 100,000 Units/gm Topical Pow(15 gm) TOP SCH ×2 (16:43→18:38)
[2019-02-27 22:42] VITALS: RESP 90; TEMP 98.4; O2SAT 100
[2019-02-28] MEDS: Meropenem IV 1 gm in NS 1 GM/50 ML BAG IVPB SCH (05:52)
[2019-02-28 07:04] LABS: HEMOGLOBIN 12.5 g/dL (12.0-16.0); MEAN CELL VOLUME 81.1 fl (80.0-105.0); MEAN CORPUSCULAR HEMOGLOBIN 25.7 pg (25.0-35.0); MEAN CORPUSCULAR HGB CONC 31.6 g/dl (31.0-37.0); MEAN PLATELET VOLUME 9.1 fl (7.0-11.0); RBC 4.87 10^6/uL (3.5-6.1); RED CELL DISTRIBUTION WIDTH 13.9 % (11.5-14.5); WHITE BLOOD COUNT 15.5 10^3/uL (4.5-11.0)
[2019-02-28 07:35] LABS: ALB/GLOB RATIO 0.8 (1.1-1.8); ALBUMIN 3.3 g/dL (3.0-4.8); ALT/SGPT 11 U/L (7-56); AST/SGOT 27 U/L (14-36); BLOOD UREA NITROGEN 13 mg/dL (7-21); CALCIUM 8.9 mg/dL (8.4-10.5); GFR NON-AFRICAN AMERICAN > 60
[2019-02-28] MEDS: Nystatin 100,000 Units/gm Topical Pow(15 gm) TOP SCH (09:54)
[2019-02-28 09:56] VITALS: BP 136/73; PULSE 74
--- NOTE | 2019-02-28 13:00 | CP.PCM.DIS ---
<Juan R Singh - Last Filed: 02/28/19 16:12> Provider - Provider Date of Admission: 02/22/19 17:56 Attending physician: Cleveland Christopher MD Primary care physician: Yosef Marte MD Consults: 02/22/19 18:55 General Surgery Consult Stat Comment: Consulting Provider: Remberto Lynch Consulting Physician: Remberto Lynch Reason for Consult: sacral wound Infectious Disease Consult Stat Comment: Consulting Provider: Donis Ramirez Consulting Physician: Donis Ramirez Reason for Consult: sacral wound 02/23/19 11:45 Nursing Referral for Wound Care Routine Comment: Physician Instructions: Reason For Exam: STAGE 2 Sacral wounds 02/25/19 08:31 Consult [Physician Consult] Routine Comment: Consulting Provider: Zack Cline Consulting Physician: Zack Cline Reason for Consult: multiple sclerosis Time Spent in preparation of Discharge (in minutes): 40 Diagnosis - Discharge Diagnosis (1) Decubitus ulcer, stage 2 with infection Status: Acute (2) Decubitus skin ulcer Status: Acute (3) Multiple sclerosis Status: Chronic Hospital Course - Lab Results Lab Results: Micro Results 02/26/19 02:07 Sacral Gram Stain - Final 02/26/19 02:07 Sacral Wound Culture - Preliminary Gram Negative Rashard 02/22/19 17:00 Blood Blood Culture - Final NO GROWTH AFTER 5 DAYS 02/22/19 17:00 Blood Gram Stain - Final TEST NOT PERFORMED 02/22/19 16:26 Blood Blood Culture - Final NO GROWTH AFTER 5 DAYS 02/22/19 16:26 Blood Gram Stain - Final TEST NOT PERFORMED 02/23/19 22:00 Urine,Catheterized Urine Culture - Final No Growth (<1,000 CFU/ML) Most Recent Lab Values WBC 15.5 10^3/uL (4.5-11.0) H 02/28/19 06:15 RBC 4.87 10^6/uL (3.5-6.1) 02/28/19 06:15 Hgb 12.5 g/dL (12.0-16.0) 02/28/19 06:15 Hct 39.5 % (36.0-48.0) 02/28/19 06:15 MCV 81.1 fl (80.0-105.0) 02/28/19 06:15 MCH 25.7 pg (25.0-35.0) 02/28/19 06:15 MCHC 31.6 g/dl (31.0-37.0) 02/28/19 06:15 RDW 13.9 % (11.5-14.5) 02/28/19 06:15 Plt Count 387 10^3/uL (120.0-450.0) 02/28/19 06:15 MPV 9.1 fl (7.0-11.0) 02/28/19 06:15 Neut % (Auto) 64.2 % (50.0-68.0) 02/22/19 16:26 Lymph % (Auto) 26.9 % (22.0-35.0) 02/22/19 16:26 [place] % (Auto) 5.5 % (1.0-6.0) 02/22/19 16:26 Eos % (Auto) 3.0 % (1.5-5.0) 02/22/19 16:26 Baso % (Auto) 0.4 % (0.0-3.0) 02/22/19 16:26 Lymph # (Auto) 4.0 (1.2-3.4) H 02/22/19 16:26 [place] # (Auto) 0.8 (0.1-0.6) H 02/22/19 16:26 Eos # (Auto) 0.5 (0.0-0.7) 02/22/19 16:26 Baso # (Auto) 0.06 K/mm3 (0.0-2.0) 02/22/19 16:26 Absolute Neuts (auto) 9.48 (1.4-6.5) H 02/22/19 16:26 ESR 118 mm/hr (0.0-20.0) H 02/22/19 16:26 PT 11.8 SECONDS (9.4-12.5) 02/22/19 18:38 INR 1.06 02/22/19 18:38 APTT 44.0 Seconds (26.9-38.3) H 02/22/19 18:38 Sodium 141 mmol/L (132-148) 02/28/19 06:15 Potassium 4.6 mmol/L (3.6-5.0) 02/28/19 06:15 Chloride 105 mmol/L (98-107) 02/28/19 06:15 Carbon Dioxide 29 mmol/L (21-33) 02/28/19 06:15 Anion Gap 11 (10-20) 02/28/19 06:15 BUN 13 mg/dL (7-21) 02/28/19 06:15 Creatinine 0.8 mg/dl (0.7-1.2) 02/28/19 06:15 Est GFR ( Amer) > 60 02/28/19 06:15 Est GFR (Non-Af Amer) > 60 02/28/19 06:15 Random Glucose 84 mg/dL (70-110) 02/28/19 06:15 Calcium 8.9 mg/dL (8.4-10.5) 02/28/19 06:15 Total Bilirubin 0.6 mg/dL (0.2-1.3) 02/28/19 06:15 AST 27 U/L (14-36) 02/28/19 06:15 ALT 11 U/L (7-56) 02/28/19 06:15 Alkaline Phosphatase 85 U/L (38-126) 02/28/19 06:15 C-Reactive Protein 32.10 mg/L (0.0-9.9) H 02/22/19 16:26 Total Protein 7.5 g/dL (5.8-8.3) 02/28/19 06:15 Albumin 3.3 g/dL (3.0-4.8) 02/28/19 06:15 Globulin 4.2 gm/dL 02/28/19 06:15 Albumin/Globulin Ratio 0.8 (1.1-1.8) L 02/28/19 06:15 Ur Random Creatinine 79 mg/dL 02/23/19 09:50 U Random Total Protein 35 mg/L 02/22/19 09:50 - Hospital Course Hospital Course: 63-year-old female with a past medical history of progressive multiple sclerosis, obesity, membranous glomerulonephritis and a sacral wound who presented for pain in her sacrum as well as foul-smelling discharge. Patient was admitted for evaluation. Patient was noted to have a stage II sacral ulcer. Surgery was consulted and recommended air mattress, turn every 2 hours, OPTi foam. Surgery follow the patient during the admission. Patient was also evaluated by ID and was treated with meropenem and Zyvox for a total of 7 days. There was a concern for possible pelvic osteomyelitis and so a pelvic ultrasound was ordered which was negative for osteomyelitis. Patient was continued on her home baclofen for spasticity from the multiple sclerosis. Patient's cultures were all negative except for the sacrum which grew gram-negative rashard. Patient was also evaluated during admission by neurology for her multiple sclerosis and was found to have no active issues at this time. Patient also had an MRI of the brain which showed no acute intracranial abnormality but did show multifocal subcortical deep and periventricular white matter lesions are nonspecific but most compatible with demyelinating plaques of multiple sclerosis but the stated clinical history of multiple sclerosis. No evidence of acute demyelination. Patient also had a cervical spine MRI which showed no active demyelination eit her. Patient had an abdominal ultrasound which showed diffuse hepatic steatosis. Patient was seen and examined this morning and was found to be in a stable condition. Patient had no acute complaints other than that she wanted to go home. Patient will be discharged home with clear instructions to continue her home medications as well as to continue local wound care with Santyl and OptiForm. Patient will be able to have services from visiting nurses at home. They will help with her wound care. All questions were welcomed and answered to the verbal satisfaction of the patient. Patient to follow up with PMD. - Date & Time of H&P Date of H&P: 02/28/19 Time of H&P: 14:00 Discharge Exam - Head Exam Head Exam: NORMAL INSPECTION - Eye Exam Eye Exam: EOMI. absent: Scleral icterus - ENT Exam ENT Exam: Mucous Membranes Moist - Respiratory Exam Respiratory Exam: absent: Rales, Rhonchi, Wheezes - Cardiovascular Exam Cardiovascular Exam: +S1, +S2. absent: Rubs - GI/Abdominal Exam GI & Abdominal Exam: Soft. absent: Distended - Extremities Exam Extremities exam: pedal pulses present - Neurological Exam Neurological exam: Alert, Oriented x3 - Psychiatric Exam Psychiatric exam: Normal Affect, Normal Mood - Skin Skin Exam: Dry, Warm Discharge Plan - Follow Up Plan Condition: FAIR Disposition: HOME/ ROUTINE Instructions: Pressure Sores (DC), Wound Care (DC) Additional Instructions: Clean wound with Normal Saline and pat dry Apply Santyl and optiform/Mepilex Change dressing every 3 days (VNA services) or as needed Referrals: Yosef Marte MD [Primary Care Provider] - <Cleveland Christopher - Last Filed: 02/28/19 16:30> Provider - Provider Date of Admission: 02/22/19 17:56 Attending physician: Cleveland Christopher MD Primary care physician: Yosef Marte MD Consults: 02/22/19 18:55 General Surgery Consult Stat Comment: Consulting Provider: Remberto Lynch Consulting Physician: Remberto Lynch Reason for Consult: sacral wound Infectious Disease Consult Stat Comment: Consulting Provider: Donis Ramirez Consulting Physician: Donis Ramirez Reason for Consult: sacral wound 02/23/19 11:45 Nursing Referral for Wound Care Routine Comment: Physician Instructions: Reason For Exam: STAGE 2 Sacral wounds 02/25/19 08:31 Consult [Physician Consult] Routine Comment: Consulting Provider: Zack Cline Consulting Physician: Zack Cline Reason for Consult: multiple sclerosis Hospital Course - Lab Results Lab Results: Micro Results 02/26/19 02:07 Sacral Gram Stain - Final 02/26/19 02:07 Sacral Wound Culture - Preliminary Gram Negative Rashard 02/22/19 17:00 Blood Blood Culture - Final NO GROWTH AFTER 5 DAYS 02/22/19 17:00 Blood Gram Stain - Final TEST NOT PERFORMED 02/22/19 16:26 Blood Blood Culture - Final NO GROWTH AFTER 5 DAYS 02/22/19 16:26 Blood Gram Stain - Final TEST NOT PERFORMED 02/23/19 22:00 Urine,Catheterized Urine Culture - Final No Growth (<1,000 CFU/ML) Most Recent Lab Values WBC 15.5 10^3/uL (4.5-11.0) H 02/28/19 06:15 RBC 4.87 10^6/uL (3.5-6.1) 02/28/19 06:15 Hgb 12.5 g/dL (12.0-16.0) 02/28/19 06:15 Hct 39.5 % (36.0-48.0) 02/28/19 06:15 MCV 81.1 fl (80.0-105.0) 02/28/19 06:15 MCH 25.7 pg (25.0-35.0) 02/28/19 06:15 MCHC 31.6 g/dl (31.0-37.0) 02/28/19 06:15 RDW 13.9 % (11.5-14.5) 02/28/19 06:15 Plt Count 387 10^3/uL (120.0-450.0) 02/28/19 06:15 MPV 9.1 fl (7.0-11.0) 02/28/19 06:15 Neut % (Auto) 64.2 % (50.0-68.0) 02/22/19 16:26 Lymph % (Auto) 26.9 % (22.0-35.0) 02/22/19 16:26 [place] % (Auto) 5.5 % (1.0-6.0) 02/22/19 16:26 Eos % (Auto) 3.0 % (1.5-5.0) 02/22/19 16:26 Baso % (Auto) 0.4 % (0.0-3.0) 02/22/19 16:26 Lymph # (Auto) 4.0 (1.2-3.4) H 02/22/19 16:26 [place] # (Auto) 0.8 (0.1-0.6) H 02/22/19 16:26 Eos # (Auto) 0.5 (0.0-0.7) 02/22/19 16:26 Baso # (Auto) 0.06 K/mm3 (0.0-2.0) 02/22/19 16:26 Absolute Neuts (auto) 9.48 (1.4-6.5) H 02/22/19 16:26 ESR 118 mm/hr (0.0-20.0) H 02/22/19 16:26 PT 11.8 SECONDS (9.4-12.5) 02/22/19 18:38 INR 1.06 02/22/19 18:38 APTT 44.0 Seconds (26.9-38.3) H 02/22/19 18:38 Sodium 141 mmol/L (132-148) 02/28/19 06:15 Potassium 4.6 mmol/L (3.6-5.0) 02/28/19 06:15 Chloride 105 mmol/L (98-107) 02/28/19 06:15 Carbon Dioxide 29 mmol/L (21-33) 02/28/19 06:15 Anion Gap 11 (10-20) 02/28/19 06:15 BUN 13 mg/dL (7-21) 02/28/19 06:15 Creatinine 0.8 mg/dl (0.7-1.2) 02/28/19 06:15 Est GFR ( Amer) > 60 02/28/19 06:15 Est GFR (Non-Af Amer) > 60 02/28/19 06:15 Random Glucose 84 mg/dL (70-110) 02/28/19 06:15 Calcium 8.9 mg/dL (8.4-10.5) 02/28/19 06:15 Total Bilirubin 0.6 mg/dL (0.2-1.3) 02/28/19 06:15 AST 27 U/L (14-36) 02/28/19 06:15 ALT 11 U/L (7-56) 02/28/19 06:15 Alkaline Phosphatase 85 U/L (38-126) 02/28/19 06:15 C-Reactive Protein 32.10 mg/L (0.0-9.9) H 02/22/19 16:26 Total Protein 7.5 g/dL (5.8-8.3) 02/28/19 06:15 Albumin 3.3 g/dL (3.0-4.8) 02/28/19 06:15 Globulin 4.2 gm/dL 02/28/19 06:15 Albumin/Globulin Ratio 0.8 (1.1-1.8) L 02/28/19 06:15 Ur Random Creatinine 79 mg/dL 02/23/19 09:50 U Random Total Protein 35 mg/L 02/22/19 09:50 - Hospital Course Hospital Course: Pt seen and examined by me. I have reviewed the note of the medical office technology instructor and I agree with it. I have discussed the assessment and plan with the resident. I have reviewed the medications and the last labs.
--- NOTE | 2019-02-28 13:23 | MRI ---
Date of service: 02/26/2019 PROCEDURE: MRI of the pelvis with and without contrast HISTORY: R/O OSTEOMYELITIS COMPARISON: TECHNIQUE: MRI of the pelvis with attention to the sacrum was performed in multiple plains using multiple pulse sequences. 15 cc of Omniscan were injected. The study is degraded by motion artifact. FINDINGS: There is no marrow edema or enhancement to suggest osteomyelitis. There is no significant subcutaneous or muscular edema. The report concurs with the preliminary [facility] report IMPRESSION: No evidence of osteomyelitis.
--- NOTE | 2019-03-01 00:52 | DS ---
HOSPITAL COURSE: The patient was seen and examined. I do agree with the note of the medical legal investigator. I was involved in the plan of care. The patient initially came to the hospital because she had sacral pressure ulcer stage II. She was treated with IV antibiotics and local wound care. She was seen by Infectious Disease. The patient had a MRI of the pelvis to rule out osteomyelitis and it was negative for osteomyelitis. She was seen by Dr. Cline from Neurology and he had ordered MRI of the brain as well as cervical spine, it did not show any acute new lesions for her multiple sclerosis. She is feeling well. She finished her IV antibiotics. The patient is going to get [facility] visiting nurses to follow for the wound. I did speak to [facility] visiting nurses to go over some of her medications. The patient is going to be discharged home to follow up as an outpatient with Dr. Marte in 1 to 2 weeks. She has a membranous glomerulonephritis and her proteinuria is less than 4 g when she does not require immunosuppressive therapy and she will be followed for her proteinuria. Cleveland Christopher MD
== END 2019-02-28 13:55 | disposition home health service (06) | DRG 593 ==
LOC: ED 14:34 → ERH 17:56 → 5RSO 21:28 → 5RNO 02-27 18:36
PROVIDERS: ADMIT Internal Medicine Nephrology; ATTEND Internal Medicine Nephrology
DX: L89.152 Pressure ulcer of sacral region, stage 2 (principal); N05.2 Unspecified nephritic syndrome with diffuse membranous glomerulonephritis; G35 Multiple sclerosis; D72.829 Elevated white blood cell count, unspecified; R32 Unspecified urinary incontinence; I73.9 Peripheral vascular disease, unspecified; G62.9 Polyneuropathy, unspecified; K59.00 Constipation, unspecified; J45.909 Unspecified asthma, uncomplicated; K76.0 Fatty (change of) liver, not elsewhere classified; Z93.3 Colostomy status; Z74.01 Bed confinement status; Z87.891 Personal history of nicotine dependence